=== PATIENT | female | born 1935 | race Caucasian/White ===

== ENCOUNTER 2021-08-19 07:50 | Day surgery (SDC) | payer OTHER, SELFPAY ==
[~2021-08-19] VITALS: Ht 152.4 cm; Wt 81.6 kg
[2021-08-19] MEDS ORDERED: MEPIVACAINE PF 1% 10 MG/ML VIAL INJ ONE (09:06)
[2021-08-19] MEDS ORDERED: MIDAZOLAM HCL 2 MG/2 ML VIAL (VERSED) ONE (09:06)
[2021-08-19] MEDS ORDERED: NS 500 ML IV.SOLN IV ONE (09:06)
[2021-08-19] MEDS ORDERED: NS IRRIG SOLN 1000 ML IR ONE (09:06)
[2021-08-19] MEDS ORDERED: NS 100 ML BAG IV ONE (09:06)
[2021-08-19] MEDS ORDERED: MEPERIDINE HCL/PF 25 MG/ML DISP.SYRIN ONE (09:06)
[2021-08-19 16:36] VITALS: BP_SYST 140
== END 2021-08-19 12:40 | disposition home or self-care (01) ==
LOC: SDS 07:50 → SMU 07:51 → SDS 12:40
PROVIDERS: ATTEND Dentist General Practice
DX: M27.2 Inflammatory conditions of jaws (principal); M89.8X0 Other specified disorders of bone, multiple sites; M26.03 Mandibular hyperplasia; M26.603 Bilateral temporomandibular joint disorder, unspecified; M26.51 Abnormal jaw closure; K05.223 Aggressive periodontitis, generalized, severe; G50.1 Atypical facial pain; K04.2 Pulp degeneration; K12.2 Cellulitis and abscess of mouth; H92.09 Otalgia, unspecified ear; E11.9 Type 2 diabetes mellitus without complications; M06.9 Rheumatoid arthritis, unspecified; Z88.0 Allergy status to penicillin; Z88.6 Allergy status to analgesic agent; Z88.8 Allergy status to other drugs, medicaments and biological substances; Z20.822 Contact with and (suspected) exposure to COVID-19
CPT/HCPCS: 21025; 21215; 21248; 36415; 41826; 70140; 82962; 87426; C1713 ×2; J3465; J7040; J2175

== ENCOUNTER 2021-09-14 07:58 | Day surgery (SDC) | payer OTHER, SELFPAY ==
[~2021-09-14] VITALS: Ht 152.4 cm; Wt 81.6 kg
[2021-09-14] MEDS ORDERED: NS 500 ML IV.SOLN IV ONE (10:09)
[2021-09-14] MEDS ORDERED: WATER FOR IRRIGATION,STERILE 1,000 ML IRRIG.SOLN IR ONE (10:09)
[2021-09-14] MEDS ORDERED: ARTICAINE HCL/EPINEPHRINE 4%/1:200,000 BIT 1.7 ML CARTRIDGE IJ ONE (10:09)
[2021-09-14 13:41] VITALS: BP_SYST 122
== END 2021-09-14 10:25 | disposition home or self-care (01) ==
LOC: SDS 07:58 → SMU 09:52 → SDS 10:25
PROVIDERS: ATTEND Dentist General Practice
DX: M27.2 Inflammatory conditions of jaws (principal); E11.9 Type 2 diabetes mellitus without complications; M10.9 Gout, unspecified; J45.909 Unspecified asthma, uncomplicated; G30.9 Alzheimer's disease, unspecified; F02.80 Dementia in other diseases classified elsewhere, unspecified severity, without behavioral disturbance, psychotic disturbance, mood disturbance, and anxiety; K21.9 Gastro-esophageal reflux disease without esophagitis; E78.5 Hyperlipidemia, unspecified; Z79.899 Other long term (current) drug therapy; Z20.822 Contact with and (suspected) exposure to COVID-19
CPT/HCPCS: 21026; 21215; 21248; 36415; 70140; 82962; 87426; C1713 ×2; J7040